=== PATIENT | female | born 2000 | race African-American/Black ===

== ENCOUNTER 2021-07-28 16:47 | Emergency (ER) | payer SELFPAY ==
[2021-07-28 17:01] VITALS: BP 120/86; PULSE 82; TEMP 97.4; BMI 32.9
== END 2021-07-28 18:51 | disposition home or self-care (01) ==
LOC: JERFT 16:47
DX: S63.621A Sprain of interphalangeal joint of right thumb, initial encounter (principal); X50.0XXA Overexertion from strenuous movement or load, initial encounter
CPT/HCPCS: 73130-TC-RT-FY; 99283-25